=== PATIENT | male | born 1980 | race Caucasian/White ===

== ENCOUNTER 2017-04-08 13:24 | Emergency (ER) | payer SELFPAY ==
[2017-04-08 13:40] VITALS: BP 136/88; PULSE 107; RESP 16; TEMP 99; O2SAT 93
[2017-04-08] MEDS ORDERED: TDAP ADULT 0.5 ML INJ (BOOSTRIX) IM ONE (14:00)
--- NOTE | 2017-04-08 14:33 | EDPHY ---
H & P Stated Complaint: Spider bite R thigh Friday 04/06-swollen and painful. Time Seen by Provider: 04/08/17 13:45 HPI/ROS: CHIEF COMPLAINT: Spider bite with increasing redness and pain HISTORY OF PRESENT ILLNESS: This is an immunocompetent 36-year-old male who reports being bitten by a spider 2 days ago. He saw the spider but does not know what kind it was. He has had subjective fever. The bite is located just above and lateral to his right knee. That area has been getting progressively more swollen, red, warm, and painful. There was some drainage earlier this morning. He took ibuprofen several hours ago. He denies numbness or weakness. He is able to move his knee, although this will an area is painful with range of motion. REVIEW OF SYSTEMS: A ten point review of systems was performed and is negative with the exception of the items mentioned in the HPI. - Personal History Current Tetanus/Diphtheria Vaccine: Unsure Current Tetanus Diphtheria and Acellular Pertussis (TDAP): Unsure - Medical/Surgical History Hx Asthma: No Hx Chronic Respiratory Disease: No Hx Diabetes: No Hx Cardiac Disease: No Hx Renal Disease: No Hx Cirrhosis: No Hx Alcoholism: No Hx HIV/AIDS: No Hx Splenectomy or Spleen Trauma: No Other PMH: L Inguinal hernia repair, infant corrective foot surgery. - Social History Smoking Status: Never smoked Additional Social History: He lives in [place], [place] and is here working construction. He will be leaving on Friday, 3 days hence. He does not use tobacco products. He is single. - Physical Exam Exam: General Appearance: Alert. Vital signs reviewed. Blood pressure 136/88, heart rate 107. Eyes: Pupils equal and round, no conjunctival injection, no discharge. Anicteric. Respiratory: Lungs are clear to auscultation; no wheezes, rales, or rhonchi. Cardiovascular: Regular rate and rhythm; no murmur, rub, or gallop. Not tachycardic at my exam. Gastrointestinal: Abdomen is soft and nontender, no masses or organomegaly, bowel sounds normal. Skin: 1 x 2 cm tender firm mass just above and lateral to the right knee. Overlying skin is macerated. There is surrounding erythema that extends upward towards the thigh and down words to the mid lateral calf. The skin is warm to the touch. Extremities: Full active range of motion of his right knee. Neurological: Alert and oriented. Moving all four extremities easily and equally. Sensation intact to light touch over both lower extremities. Psychiatric: Normal affect. Constitutional: Initial Vital Signs Temperature (C) 37.2 C 04/08/17 13:35 Heart Rate 107 H 04/08/17 13:35 Respiratory Rate 16 04/08/17 13:35 Blood Pressure 136/88 H 04/08/17 13:35 O2 Sat (%) 93 04/08/17 13:35 O2 Delivery Mode Room Air Allergies/Adverse Reactions: No Known Allergies Allergy (Unverified 04/08/17 13:40) Home Medications: Medication Instructions Recorded Cephalexin [Keflex] 500 mg PO TID #21 cap 04/08/17 Doxycycline Hyclate [Doxycycline] 100 mg PO BID #13 cap 04/08/17 Sulfamethox/Tmp 800/160 mg 1 tab PO BID #14 tab 04/08/17 [Bactrim Ds] Medical Decision Making Procedures: ED incision and drainage procedure. Indication: Abscess. The abscess was located just above and lateral to the patient's right knee. After reviewing the risks and benefits of incision and drainage the patient gave his oral consent to proceed with the procedure. The abscessed area was anesthetized with 2% lidocaine with epinephrine. The skin was cleaned with ChloraPrep. The area was sterilely draped. Using a 11. Blade the abscess was incised. A large amount of purulence was obtained. Culture was sent. Septations were broken up and the area was irrigated with sterile water. Packing was placed. Patient tolerated the procedure well. ED Course/Re-evaluation: Right leg abscess with surrounding cellulitis. The abscess was incised and drained. Wound culture was sent. Patient was started on Bactrim and Keflex. He is advised to follow up at [facility] in 2 days. Hopefully he will be able to obtain an appointment there, so as to avoid another emergency department visit for follow-up. I have stressed the importance of follow-up. We reviewed the danger signs that should prompt him to be re-evaluated immediately. He does not appear toxic. He will use Tylenol and ibuprofen for pain as needed. Differential Diagnosis: I considered a differential diagnosis that includes but is not limited to abscess, cellulitis, lymphangitis, and knee joint infection. - Data Points Medications Given: Discontinued Medications Diphtheria/Tetanus/Acell Pertussis (Boostrix) 0.5 ml IM .ONCE ONE Stop: 04/08/17 14:01 Last Admin: 04/08/17 14:04 Dose: 0.5 ml Departure - Departure Disposition: Home, Routine, Self-Care Clinical Impression: Abscess Condition: Good Instructions: Abscess (ED) Additional Instructions: Adult Pain & Fever Control: We recommend Acetaminophen (Tylenol) and Ibuprofen (Motrin,Advil) for pain and fever control. When fever is high or pain severe, both drugs can be used at the same time, but at different intervals. Please note the time differences. Your dose is: Acetaminophen 650mg every 4 to 6 hours Ibuprofen 400mg every 8 hours with food OR Note: do not take Acetaminophen with Hydrocodone (Vicodin, Lortab) or Oycodone (Percocet). These medications also contain Acetaminophen. No more than 3000mg of Acetaminophen should be taken in 24 hours (for an adult). The packing in the wound might fall out, as we discussed. If so do not Worry about it. You need to be re-evaluated in 2 days, on . I am referring you to the [facility], [facility], for follow-up. You will need to call them tomorrow to arrange an appointment. Let them know that you were seen in the emergency department, that you had an abscess drained , and that you need follow up on or Friday at the latest. Make sure they know that you are leaving the area. I am giving you Dr. Salgado's ([facility]) number, but anyone in the office can see you in follow up. Return for re-evaluation if you develop persistent fever, become ill, have increasing swelling or pain. You can expect this to get a slight bit worse before it gets better. Referrals: Monet Salgado MD [Medical Doctor] - As per Instructions Prescriptions: Cephalexin [Keflex] 500 mg PO TID #21 cap Doxycycline Hyclate [Doxycycline] 100 mg PO BID #13 cap Sulfamethox/Tmp 800/160 mg [Bactrim Ds] 1 tab PO BID #14 tab
== END 2017-04-08 14:51 | disposition home or self-care (01) ==
LOC: CED 13:24
PROC: 0H9KXZZ Drainage of Right Lower Leg Skin, External Approach (ICD-10-PCS; principal; 2017-04-08)
DX: L02.415 Cutaneous abscess of right lower limb (principal); Z23 Encounter for immunization